=== PATIENT | female | born 1950 | race Caucasian/White ===

== ENCOUNTER 2017-12-12 07:41 | Inpatient (IN) ==
[2017-12-09 15:49] LABS: Appearance,Urine CLEAR; Bacteria,Urine FEW /hpf (0); Bilirubin,Urine NEG (NEG); Color,Urine STRAW; Glucose,Urine (UA) NEGATIVE (NEG); Leukocyte Esterase,Urine 75 /uL (NEG); Mucus,Urine FEW /hpf (0); Protein,Urine NEG (NEG); Specific Gravity,Urine 1.005 (1.000-1.035); Urine Blood NEG mg/dL (<0.03); Urine RBC 2 /hpf (0-1); Urine Squamous Epithelial Cell 0 /hpf (0-4); Urine Transitional Epi Cells < 1 /hpf (0-2); Urine WBC 3 /hpf (0-4); Urobilinogen,Urine NEG (NEG)
[2017-12-09 20:11] LABS: Basophils # (Auto) 0.1 K/mcL (0.0-0.3); Basophils % (Auto) 0.4 % (0.0-2.0); Eosinophils % (Auto) 8.1 % (0.0-7.0); Granulocytes % (Auto) 57.9 % (38.0-78.0); Lymphocytes # (Auto) 3.3 K/mcL (1.5-4.8); Lymphocytes % (Auto) 26.1 % (15.5-49.0); Mean Cell Volume 89.1 fL (80.0-100.0); Mean Corpuscular HGB Conc 33.6 g/dL (31.0-36.0); Monocytes # (Auto) 0.9 K/mcL (0.1-0.9); Monocytes % (Auto) 7.5 % (1.0-12.0); Platelet Count 300 K/mcL (140-440); RBC 4.09 M/mcL (4.00-5.20); Red Cell Distribution Width 14.9 % (11.5-14.5)
[2017-12-09 20:14] LABS: Blood Urea Nitrogen 21 mg/dl (8-23)
[~2017-12-12 07:41] MED LIST: IPRATROPIUM/ALBUTEROL 3 ML AMPUL.NEB NEB PRN; SCOPOLAMINE 1 PATCH PATCH TOPICAL PRN; ceFAZolin 1 GM VIAL IV SCH
[2017-12-12 10:00] LABS: Appearance,Urine HAZY; Bacteria,Urine FEW /hpf (0); Bilirubin,Urine NEG (NEG); Color,Urine YELLOW; Glucose,Urine (UA) NEGATIVE (NEG); Leukocyte Esterase,Urine 250 /uL (NEG); Protein,Urine NEG (NEG); Specific Gravity,Urine 1.013 (1.000-1.035); Urine Amorphous Crystals FEW /hpf (0); Urine Blood NEG mg/dL (<0.03); Urine RBC 3 /hpf (0-1); Urine Squamous Epithelial Cell 0 /hpf (0-4); Urine WBC 39 /hpf (0-4); Urobilinogen,Urine NEG (NEG)
[2017-12-12] MEDS ORDERED: KETOROLAC 30 MG, ROPIVACAINE HCL/PF 49.5 ML, EPINEPHrine 0.5 MG, 0.9 % SODIUM CHLORIDE ... IJ ONE (10:00)
[2017-12-12] MEDS ORDERED: MIDAZOLAM 5 MG/5 ML VIAL IV ONE (10:45)
[2017-12-12] MEDS ORDERED: LIDOCAINE HCL/PF 100 MG/5 ML SYRINGE IV ONE (10:45)
[2017-12-12] MEDS ORDERED: TRANEXAMIC ACID 1,000 MG/10 ML VIAL IV ONE ×2 (10:45→12:19)
[2017-12-12] MEDS ORDERED: DEXAMETHASONE 10 MG/ML VIAL IV ONE (10:45)
[2017-12-12] MEDS ORDERED: ONDANSETRON 4 MG/2 ML VIAL IV ONE (10:45)
[2017-12-12] MEDS ORDERED: ROPIVACAINE HCL/PF 20 ML VIAL IJ ONE (10:45)
[2017-12-12] MEDS ORDERED: PHENYLEPHRINE 10 MG/ML VIAL IV ONE (10:45)
[2017-12-12] MEDS ORDERED: PROPOFOL 200 MG/20 ML VIAL IV ONE (10:45)
[2017-12-12] MEDS ORDERED: ePHEDrine 50 MG/ML AMPUL IV ONE (10:45)
[2017-12-12] MEDS ORDERED: GENTAMICIN SULFATE 800 MG/20 ML VIAL IR ONE (11:25)
[2017-12-12] MEDS ORDERED: MEPERIDINE 25 MG/ML SYRINGE IV PRN (11:54)
[2017-12-12] MEDS ORDERED: ACETAMINOPHEN 1,000 MG/100 ML BOTTLE IV ONE (11:54)
[2017-12-12] MEDS ORDERED: FLUMAZENIL 0.1 MG/ML ML IV PRN (11:54)
[2017-12-12] MEDS ORDERED: fentaNYL 100 MCG/2 ML VIAL IV PRN (11:54)
[2017-12-12] MEDS ORDERED: METHOCARBAMOL 1,000 MG/10 ML VIAL IV PRN (11:54)
[2017-12-12] MEDS ORDERED: IPRATROPIUM/ALBUTEROL 3 ML AMPUL.NEB NEB PRN (11:54)
[2017-12-12] MEDS ORDERED: BENZOCAINE/MENTHOL 1 LOZENGE PO PRN (11:54)
[2017-12-12] MEDS ORDERED: ONDANSETRON 4 MG/2 ML VIAL IV PRN ×2 (11:54→12:19)
[2017-12-12] MEDS ORDERED: NALOXONE HCL 0.4 MG/ML VIAL IV PRN (11:54)
[2017-12-12] MEDS ORDERED: LACTATED RINGERS 250 ML IV PRN (11:54)
[2017-12-12] MEDS ORDERED: LACTATED RINGERS 1,000 ML IV SCH (12:00)
[2017-12-12] MEDS ORDERED: POLYETHYLENE GLYCOL 3350 17 GM PACKET PO PRN (12:19)
[2017-12-12] MEDS ORDERED: ACETAMINOPHEN 325 MG TABLET PO PRN (12:19)
[2017-12-12] MEDS ORDERED: BISACODYL 10 MG SUPP.RECT PR PRN (12:19)
[2017-12-12] MEDS ORDERED: MAGNESIUM HYDROXIDE 30 ML ORAL.SUSP PO PRN (12:19)
[2017-12-12] MEDS ORDERED: FLEETS ADULT ENEMA PR PRN (12:19)
[2017-12-12] MEDS ORDERED: LORazepam 0.5 MG TABLET PO PRN (12:24)
--- NOTE | 2017-12-12 12:28 | Brief Operative Note ---
Date of procedure: 12/12/17 Pre-op diagnosis: DJD left knee Post-op diagnosis: same Procedure: L TKR Grafts/Implants: Yes (Attune S+) Anesthesia: JUANA Surgeon: Steve Hicks Sound Ranging Crewmember: Teofilo Gómez Estimated blood loss (cc): 250 Specimens Removed/Pathology: none sent Condition: stable Disposition: PACU
--- NOTE | 2017-12-12 13:25 | Operative Note ---
DATE OF OPERATION: 12/12/2017 PREOPERATIVE DIAGNOSIS: Degenerative joint disease of the left knee. POSTOPERATIVE DIAGNOSIS: Degenerative joint disease of the left knee. OPERATION: Left total knee replacement. SURGEON: Steve Hicks M.D. HOG STOMACH PREPARER: Teofilo Gómez PA-C. ANESTHESIA: General. SUMMARY OF PROCEDURE: General anesthesia was attained. The left leg was prepped and draped. We did the initial 5 minutes or so without tourniquet, but the bleeding was persistent, and we therefore did the case under tourniquet control. The midline incision was made from the quadriceps to the tibial tubercle. This was taken down sharply to the quadriceps and medial retinaculum. These were split longitudinally. The patella was mobilized laterally. The fat pad was debrided. The anterior menisci were resected. The knee was flexed. The extramedullary guide was placed on the tibia. The tibia was cut in 3 degrees of flexion. We did a 5 mm resection from the low point of the medial meniscus. The tibia sized to a 3. The posterior menisci had been resected. The ACL and PCL were released. The intramedullary canal of the femur was opened. The distal femoral cutting guide was placed. The distal femur was cut. The femur sized to a 4. We then did the anterior, posterior and bevel cuts on the femur. The tibial canal was then prepared by reaming the bone. The best combination for an insert for a full range of motion with medial and lateral stability was with a 12 mm insert. A release of the hamstrings was required to get a flexion and extension gap balance. The patella was everted. It measured 22 mm in depth. An 8 mm resection was done. A 35 mm component was the correct size. The three mounting holes for the cement were drilled. All the components were next cemented in. The knee was left in full extension while the cement hardened. Excess cement was removed. The polypharmacy injection was injected throughout the knee. The quadriceps and medial retinaculum and the hamstring release was closed with 0 Vicryl and buried simple sutures of 0 FiberWire. A running locking 0 Maxon was placed over this layer. The subcutaneous tissue was closed with interrupted buried 2-0 Monocryl. The skin was closed with Dura-Oh. A sterile compressive dressing was applied. The sponge and needle count was correct. The patient tolerated the procedure well and was taken to the recovery room in stable condition. TJF:yaneth Job ID: [id number] Doc ID: [id number] Steve Hicks MD
--- NOTE | 2017-12-12 13:28 | XRay Report ---
CLINICAL INFORMATION: Reason for Exam:post total knee COMPARISON: None. FINDINGS: Total knee prostheses is anatomically aligned. No osseous abnormality. Periarticular gas soft tissue swelling seen as expected. IMPRESSION: Negative Interpreted and Authenticated by: Mehrdad Helms 12/12/17
[2017-12-12] MEDS: 0.9 % SODIUM CHLORIDE 1,000 ML IV SCH (14:12)
[2017-12-12] MEDS: 0.9 % SODIUM CHLORIDE 10 ML SYRINGE IV SCH ×2 (14:12→21:26)
[2017-12-12] MEDS ORDERED: KETOROLAC 30 MG/ML VIAL ONE (16:03)
[2017-12-12] MEDS: metFORMIN 500 MG TAB.XL.24H PO SCH (17:36)
[2017-12-12] MEDS: HYDROcodone/APAP 10/325MG TABLET PO PRN ×3 (17:37→21:23)
[2017-12-12] MEDS: POTASSIUM CHLORIDE 20 MEQ PACKET PO SCH (17:38)
[2017-12-12] MEDS: ceFAZolin 1 GM VIAL IV SCH (18:57)
[2017-12-12] MEDS: SIMVASTATIN 20 MG TABLET PO SCH (21:22)
[2017-12-12] MEDS: LITHIUM CARBONATE 450 MG TAB.SR.12H PO SCH (21:22)
[2017-12-12] MEDS: lamoTRIgine 100 MG TABLET PO SCH (21:23)
[2017-12-12] MEDS: SENNOSIDES 1 TABLET PO SCH (21:23)
[2017-12-12] MEDS: ASPIRIN 325 MG ENTERIC COATED TABLET PO SCH (21:23)
[2017-12-12] MEDS: DOCUSATE SODIUM 100 MG CAPSULE PO SCH (21:23)
[2017-12-13] MEDS: 0.9 % SODIUM CHLORIDE 1,000 ML IV SCH ×2 (00:15→08:00)
[2017-12-13] MEDS: HYDROcodone/APAP 10/325MG TABLET PO PRN ×6 (01:47→21:46)
[2017-12-13] MEDS: ceFAZolin 1 GM VIAL IV SCH (02:36)
[2017-12-13] MEDS: 0.9 % SODIUM CHLORIDE 10 ML SYRINGE IV SCH ×2 (06:11→15:49)
--- NOTE | 2017-12-13 08:02 | Orthopedic Progress Note ---
Subjective Patient information: Note initiated : 12/13/17 at 7:59 am Service Date, if different from initiated Date: [] Patient: Yvonne Evans 67 y/o F admitted on 12/12/17 for Left Total Knee Arthroplasty. Chief Complaint: [] Interval history: Patient is POD 1 from Right TKA and is doing well. Pain is well controlled and she is participating in PT. She has had no complications during her stay and wants to go home tomorrow. She denies any chest pain, SOB, fever, nausea, vomiting, numbness/tingling, or any other acute symptoms. Objective Vital signs: Vital Signs Temp Pulse Resp BP Pulse Ox 12/13/17 04:00 97.9 F 84 18 137/71 92 12/13/17 00:00 97.9 F 82 18 114/69 93 12/12/17 19:52 97.8 F 84 16 121/68 91 12/12/17 18:10 98.7 F 107 H 15 128/71 96 12/12/17 16:36 104 H 137/79 96 12/12/17 16:10 95 H 134/70 97 12/12/17 15:55 103 H 112/61 95 12/12/17 15:40 108 H 145/82 95 12/12/17 15:25 106 H 135/68 97 12/12/17 15:09 99 H 126/70 96 12/12/17 14:52 98.0 F 104 H 15 126/72 95 12/12/17 14:02 13 97 12/12/17 13:45 98.2 F 98 H 13 131/58 97 12/12/17 13:40 98.2 F 98 H 13 116/46 97 12/12/17 13:35 94 H 12 123/44 98 12/12/17 13:30 93 H 12 122/44 93 12/12/17 13:25 98 H 13 131/50 95 12/12/17 13:20 99 H 10 L 128/53 95 12/12/17 13:15 105 H 15 125/50 94 12/12/17 13:10 105 H 17 123/70 99 12/12/17 13:05 115 H 20 100/84 99 12/12/17 13:00 99 H 16 135/50 99 12/12/17 12:55 106 H 17 131/58 95 12/12/17 12:51 107 H 17 151/63 95 12/12/17 12:46 112 H 17 138/81 97 12/12/17 12:41 99.3 F H 96 H 20 154/68 97 12/12/17 08:00 96.9 F L 71 16 123/70 94 Intake and Output 12/12/17 12/13/17 12/13/17 21:59 05:59 13:59 Intake Total 1250 / 1250 1400 / 1400 800 / 800 Output Total 600 / 600 475 / 475 Balance 650 / 650 925 / 925 800 / 800 Intake: IV 1000 / 1000 Sodium Chloride 0.9% 1,000 ml @ 1000 / 1000 100 mls/hr IV .Q10H DAVONTE Rx#: [id number] Oral 1250 / 1250 400 / 400 800 / 800 Output: Urine Catheter Amount 600 / 600 450 / 450 Void Amount 25 / 25 Other: Meal Dinner Percent of Meal Consumed 100% Feeding Ability Independent Weight 176 lb 4.8 oz Intake & Output: Intake & Output 12/12/17 12/13/17 12/13/17 21:59 05:59 13:59 Intake Total 1250 / 1250 1400 / 1400 800 / 800 Output Total 600 / 600 475 / 475 Balance 650 / 650 925 / 925 800 / 800 Weight 176 lb 4.8 oz Intake: IV 1000 / 1000 Sodium Chloride 0.9% 1,000 ml @ 1000 / 1000 100 mls/hr IV .Q10H DAVONTE Rx#: [id number] Oral 1250 / 1250 400 / 400 800 / 800 Output: Urine Catheter Amount 600 / 600 450 / 450 Void Amount 25 / 25 Other: Meal Dinner Percent of Meal Consumed 100% Feeding Ability Independent Incision: Yes healing Dressing: Yes clean, Yes dry, Yes intact Weight bearing status: full Neurological exam IM: Yes neurovascular intact Extremities exam IM: No calf tenderness, Yes Foot pink and warm, Yes neurovascular intact - Labs CBC & BMP: 12/13/17 04:20 12/09/17 14:39 Labs: Orthopedic Labs 12/09/17 14:39 PT 13.4 INR 1.0 12/13/17 12/09/17 04:20 14:39 Hgb 10.0 L 12.3 Hct 29.9 L 36.4 Assessment and Plan (1) Status post total right knee replacement Patient doing well. PT going well, pain is controlled. Continue current treatment, discharge planning for tomorrow. Status: Acute
[2017-12-13] MEDS: lamoTRIgine 100 MG TABLET PO SCH ×2 (08:03→20:21)
[2017-12-13] MEDS: POTASSIUM CHLORIDE 20 MEQ PACKET PO SCH ×2 (08:03→17:12)
[2017-12-13] MEDS: metFORMIN 500 MG TAB.XL.24H PO SCH ×2 (08:03→17:12)
[2017-12-13] MEDS: amLODIPine 5 MG TABLET PO SCH (08:03)
[2017-12-13] MEDS: DOCUSATE SODIUM 100 MG CAPSULE PO SCH ×2 (08:04→20:21)
[2017-12-13] MEDS: OMEPRAZOLE 20 MG CAPSULE PO SCH (08:04)
[2017-12-13] MEDS: ESCITALOPRAM 20 MG TABLET PO SCH (08:04)
[2017-12-13] MEDS: ASPIRIN 325 MG ENTERIC COATED TABLET PO SCH ×2 (08:04→20:21)
[2017-12-13] MEDS: TORSEMIDE 10 MG TABLET PO SCH (08:04)
[2017-12-13] MEDS: LOSARTAN 50 MG TABLET PO SCH (08:04)
[2017-12-13] MEDS: HYDROCHLOROTHIAZIDE 12.5 MG CAPSULE PO SCH (08:04)
[2017-12-13] MEDS: LEVOTHYROXINE 50 MCG TABLET PO SCH (08:04)
[2017-12-13] MEDS ORDERED: LOSARTAN PO SCH (09:00)
[2017-12-13] MEDS ORDERED: [UNRECOGNIZED DRUG - OTHER] PO SCH (09:00)
[2017-12-13] MEDS ORDERED: HYDROCHLOROTHIAZIDE PO SCH (09:00)
[2017-12-13] MEDS: NITROFURANTOIN SR 100 MG CAPSULE PO SCH ×2 (09:22→20:20)
[2017-12-13] MEDS: ARIPIPRAZOLE 20 MG TABLET PO SCH (09:22)
[2017-12-13] MEDS: SIMVASTATIN 20 MG TABLET PO SCH (20:21)
[2017-12-13] MEDS: SENNOSIDES 1 TABLET PO SCH (20:21)
[2017-12-13] MEDS: LITHIUM CARBONATE 450 MG TAB.SR.12H PO SCH (20:21)
[2017-12-13] MEDS: BENZOCAINE/MENTHOL 1 LOZENGE PO PRN (20:21)
[2017-12-13] MEDS: METHOCARBAMOL 750 MG TABLET PO PRN (20:26)
[2017-12-14] MEDS: BENZOCAINE/MENTHOL 1 LOZENGE PO PRN (01:16)
[2017-12-14] MEDS: HYDROcodone/APAP 10/325MG TABLET PO PRN ×3 (01:44→11:38)
[2017-12-14] MEDS: LEVOTHYROXINE 50 MCG TABLET PO SCH (07:17)
[2017-12-14] MEDS: METHOCARBAMOL 750 MG TABLET PO PRN (07:17)
[2017-12-14] MEDS: OMEPRAZOLE 20 MG CAPSULE PO SCH (07:17)
--- NOTE | 2017-12-14 07:53 | Orthopedic Progress Note ---
Subjective Patient information: Note initiated : 12/14/17 at 7:51 am Service Date, if different from initiated Date: [] Patient: Yvonne Evans 67 y/o F admitted on 12/12/17 for Left Total Knee Arthroplasty. Chief Complaint: [] Principal diagnosis: s/p left TKR Objective Vital signs: Vital Signs Temp Pulse Resp BP Pulse Ox 12/14/17 06:31 97.5 F 18 151/81 91 12/14/17 04:00 98.2 F 98 H 16 127/57 90 12/14/17 00:00 97.9 F 95 H 14 128/67 91 12/13/17 19:39 97.9 F 88 16 112/65 91 12/13/17 15:33 98.0 F 82 16 110/68 92 12/13/17 12:00 97.9 F 87 16 116/71 92 12/13/17 08:00 14 92 Intake and Output 12/13/17 12/14/17 12/14/17 21:59 05:59 13:59 Intake Total 800 / 800 950 / 950 400 / 400 Output Total 675 / 675 975 / 975 350 / 350 Balance 125 / 125 -25 / -25 50 / 50 Intake: Oral 800 / 800 950 / 950 400 / 400 Output: Void Amount 675 / 675 975 / 975 350 / 350 Other: Meal Lunch Percent of Meal Consumed 50% Feeding Ability Assist with Tray Set Up # Voids 1 1 Weight 183 lb Intake & Output: Intake & Output 12/13/17 12/14/17 12/14/17 21:59 05:59 13:59 Intake Total 800 / 800 950 / 950 400 / 400 Output Total 675 / 675 975 / 975 350 / 350 Balance 125 / 125 -25 / -25 50 / 50 Weight 183 lb Intake: Oral 800 / 800 950 / 950 400 / 400 Output: Void Amount 675 / 675 975 / 975 350 / 350 Other: Meal Lunch Percent of Meal Consumed 50% Feeding Ability Assist with Tray Set Up # Voids 1 1 Incision clean and dry: Yes Dressing: Yes clean, Yes dry, Yes intact Weight bearing status: as tolerated Neurological exam IM: Yes alert, Yes altered, Yes oriented X3, Yes neurovascular intact Extremities exam IM: Yes joint swelling, Yes normal inspection, Yes Foot pink and warm - Labs CBC & BMP: 12/14/17 04:30 12/09/17 14:39 Labs: Orthopedic Labs 12/09/17 14:39 PT 13.4 INR 1.0 12/14/17 12/13/17 12/09/17 04:30 04:20 14:39 Hgb 10.2 L 10.0 L 12.3 Hct 29.5 L 29.9 L 36.4 Assessment and Plan (1) History of left knee replacement cher lira D/c Status: Acute
[2017-12-14] MEDS: lamoTRIgine 100 MG TABLET PO SCH (08:08)
[2017-12-14] MEDS: ESCITALOPRAM 20 MG TABLET PO SCH (08:08)
[2017-12-14] MEDS: HYDROCHLOROTHIAZIDE 12.5 MG CAPSULE PO SCH (08:08)
[2017-12-14] MEDS: TORSEMIDE 10 MG TABLET PO SCH (08:08)
[2017-12-14] MEDS: LOSARTAN 50 MG TABLET PO SCH (08:09)
[2017-12-14] MEDS: amLODIPine 5 MG TABLET PO SCH (08:09)
[2017-12-14] MEDS: metFORMIN 500 MG TAB.XL.24H PO SCH (08:09)
[2017-12-14] MEDS: DOCUSATE SODIUM 100 MG CAPSULE PO SCH (08:09)
[2017-12-14] MEDS: ASPIRIN 325 MG ENTERIC COATED TABLET PO SCH (08:09)
[2017-12-14] MEDS: POTASSIUM CHLORIDE 20 MEQ PACKET PO SCH ×2 (08:09→08:14)
[2017-12-14] MEDS: NITROFURANTOIN SR 100 MG CAPSULE PO SCH (08:09)
[2017-12-14] MEDS: ARIPIPRAZOLE 20 MG TABLET PO SCH (08:14)
== END 2017-12-14 13:40 | disposition home or self-care (01) | DRG 470 ==
LOC: MEDSUR 07:41 → EDSTATUS 09:00
PROVIDERS: ADMIT Orthopaedic Surgery Foot and Ankle Surgery; ATTEND Orthopaedic Surgery Foot and Ankle Surgery

== ENCOUNTER 2024-07-16 17:19 | Inpatient (IN) ==
[2024-07-16] MEDS: LIDOCAINE 4% TOP PATCH TOPICAL ONE (18:02)
[2024-07-16] MEDS: KETOROLAC 15 MG/ML VIAL IM ONE (18:02)
[2024-07-16 18:43] LABS: Basophils # (Auto) 0.05 K/mcL (0.00-0.30); Basophils % (Auto) 0.5 % (0.0-2.0); Eosinophils # (Auto) 0.84 K/mcL (0.00-0.70); Eosinophils % (Auto) 8.8 % (0.0-7.0); Hemoglobin 12.2 g/dL (11.2-15.7); Lymphocytes # (Auto) 2.91 K/mcL (1.50-4.80); Lymphocytes % (Auto) 30.5 % (15.5-49.0); Mean Cell Volume 97.4 fL (80.0-100.0); Mean Corpuscular HGB Conc 32.1 g/dL (31.0-36.0); Mean Platelet Volume 9.2 fL (8.8-12.5); Monocytes # (Auto) 0.82 K/mcL (0.10-0.90); Monocytes % (Auto) 8.6 % (1.0-12.0); Neutrophils % (Auto) 51.2 % (38.0-78.0); Platelet Count 283 K/mcL (140-440); Red Cell Distribution Width 13.3 % (11.5-14.5); WBC 9.5 K/mcL (4.5-11.0)
[2024-07-16 19:06] LABS: ALT/SGPT 14 U/L (<40); AST/SGOT 20 U/L (<32); Alkaline Phosphatase 112 U/L (39-117); Bilirubin,Total 0.2 mg/dL (0.1-1.0); Blood Urea Nitrogen 18 mg/dL (8-23); Calcium 10.2 mg/dL (8.6-10.4); Carbon Dioxide 26 mmol/L (22-30); Chloride 103 mmol/L (96-108); Glucose 115 mg/dL (70-105); Sodium 141 mmol/L (133-145)
[2024-07-16 19:12] LABS: Albumin/Globulin Ratio 1.3 (1.0-2.3); Glomerular Filtration Rate 63
[2024-07-16 19:29] LABS: Appearance,Urine Clear (Clear); Bacteria,Urine 0 /hpf (0); Bilirubin,Urine Negative (Negative); Color,Urine Yellow; Glucose,Urine (UA) Negative (Negative); Ketones,Urine Negative (Negative); Leukocyte Esterase,Urine Negative /uL (Negative); Nitrate,Urine Negative (Negative); PH,Urine 5.5 (5.0-9.0); Protein,Urine Negative (Negative); Specific Gravity,Urine 1.015 (1.000-1.035); Urine Blood Negative ery/mcL (Negative); Urine RBC 0 /hpf (0-3); Urine Squamous Epithelial Cell 3 /hpf (0-4); Urine WBC 8 /hpf (0-4); Urobilinogen,Urine Normal
[2024-07-16] MEDS ORDERED: ONDANSETRON 4 MG/2 ML VIAL IV PRN (20:32)
[2024-07-16] MEDS: ACETAMINOPHEN 1,000 MG/100 ML BAG IV SCH (21:39)
[2024-07-16] MEDS: SENNOSIDES 1 TABLET PO SCH (21:43)
[2024-07-16] MEDS: 0.9 % SODIUM CHLORIDE 10 ML SYRINGE IV SCH (21:43)
[2024-07-17] MEDS: KETOROLAC 15 MG/ML VIAL IV PRN (01:30)
[2024-07-17] MEDS: traMADol 50 MG TABLET PO PRN (01:35)
[2024-07-17] MEDS: ENOXAPARIN 40 MG/0.4 ML SYRINGE SQ SCH (09:25)
[2024-07-17] MEDS ORDERED: hydrOXYzine 25 MG TABLET PO PRN (16:00)
[2024-07-17] MEDS ORDERED: NITROGLYCERIN 0.4 MG TAB.SUBL SL PRN (16:07)
[2024-07-17] MEDS: SERTRALINE 50 MG TABLET PO SCH (16:09)
[2024-07-17] MEDS: OMEPRAZOLE 20 MG CAPSULE PO SCH (16:09)
[2024-07-17] MEDS: ISOSORBIDE MONONITRATE 30 MG TAB.XL.24H PO SCH (16:09)
[2024-07-17] MEDS: hydrOXYzine 25 MG TABLET PO PRN (19:30)
[2024-07-17] MEDS: PRAMIPEXOLE 0.25 MG TABLET PO SCH (20:34)
[2024-07-17] MEDS: METOPROLOL SUCCINATE 50 MG TAB.XL.24H PO SCH (20:34)
[2024-07-17] MEDS: HYDROmorphone 0.5 MG/0.5 ML SYRINGE IV PRN (20:35)
[2024-07-17] MEDS: RANOLAZINE 1000 MG PO SCH (20:35)
[2024-07-17] MEDS: traZODone HCL 100 MG TABLET PO SCH (20:35)
[2024-07-18] MEDS: ATORVASTATIN 40 MG TABLET PO SCH (08:36)
[2024-07-18] MEDS: ASPIRIN 81 MG TAB.CHEW PO SCH (08:36)
[2024-07-18] MEDS: lamoTRIgine 100 MG TABLET PO SCH (08:36)
[2024-07-18] MEDS: LOSARTAN 25 MG TABLET PO SCH (08:36)
[2024-07-18] MEDS: FUROSEMIDE 20 MG TABLET PO SCH (08:37)
[2024-07-18] MEDS: GABAPENTIN 300 MG CAPSULE PO SCH (10:04)
[2024-07-19] MEDS: CELECOXIB 200 MG CAPSULE PO SCH (11:47)
[2024-07-19] MEDS: ACETAMINOPHEN 500 MG TABLET PO PRN (13:45)
[2024-07-20] MEDS: traMADol 50 MG TABLET PO PRN (11:19)
[2024-07-23 07:47] LABS: Basophils # (Auto) 0.02 K/mcL (0.00-0.30); Basophils % (Auto) 0.2 % (0.0-2.0); Eosinophils # (Auto) 0.52 K/mcL (0.00-0.70); Eosinophils % (Auto) 4.8 % (0.0-7.0); Hematocrit 32.7 % (34.1-44.9); Hemoglobin 10.6 g/dL (11.2-15.7); Lymphocytes # (Auto) 1.54 K/mcL (1.50-4.80); Lymphocytes % (Auto) 14.3 % (15.5-49.0); Mean Cell Volume 96.7 fL (80.0-100.0); Mean Corpuscular HGB Conc 32.4 g/dL (31.0-36.0); Monocytes # (Auto) 1.12 K/mcL (0.10-0.90); Monocytes % (Auto) 10.4 % (1.0-12.0); Platelet Count 235 K/mcL (140-440); RBC 3.38 M/mcL (3.59-5.38); Red Cell Distribution Width 13.3 % (11.5-14.5); WBC 10.8 K/mcL (4.5-11.0)
[2024-07-23 08:10] LABS: ALT/SGPT 12 U/L (<40); AST/SGOT 15 U/L (<32); Albumin 3.5 gm/dL (3.2-5.2); Albumin/Globulin Ratio 1.3 (1.0-2.3); Alkaline Phosphatase 135 U/L (39-117); Bilirubin,Direct < 0.2 mg/dL (0-0.3); Bilirubin,Total 0.2 mg/dL (0.1-1.0); Blood Urea Nitrogen 27 mg/dL (8-23); Calcium 9.9 mg/dL (8.6-10.4); Carbon Dioxide 24 mmol/L (22-30); Chloride 104 mmol/L (96-108); Globulin 2.8 gm/dL (2.2-3.7); Glomerular Filtration Rate 63; Glucose 142 mg/dL (70-105); Lactate Dehydrogenase 174 U/L (135-225); Phosphorous 3.6 mg/dL (2.5-4.5); Potassium 4.9 mmol/L (3.3-5.1); Sodium 138 mmol/L (133-145); Triglycerides 73 mg/dL (<150); Uric Acid 3.9 mg/dL (2.5-8.0)
== END 2024-07-23 15:21 | DRG 552 ==
LOC: ED 17:19 → MEDSUR 20:25
PROVIDERS: ADMIT Internal Medicine; ATTEND Internal Medicine